=== PATIENT | female | born 1995 | race Caucasian/White ===

== ENCOUNTER 2018-03-31 21:29 | Emergency (ER) | payer BC ==
[~2018-03-31] VITALS: Ht 165.1 cm; Wt 93.9 kg
[2018-03-31 21:31] VITALS: TEMP 37.2; Ht 165.1 cm; Wt 93.9 kg
[2018-03-31] MEDS ORDERED: CEFTRIAXONE SOD 350MG/ML 1 GM VIAL IM ONE (22:15)
[2018-03-31] MEDS ORDERED: CEPH500C2 PO (22:23)
[2018-03-31] MEDS ORDERED: SULF800T23 PO (22:23)
--- NOTE | 2018-03-31 22:24 | EMERGENCY ROOM VISIT NOTE ---
ED Visit Note First contact with patient: 21:42 CHIEF COMPLAINT: Left second finger infection 1 day HISTORY OF PRESENT ILLNESS: Patient is a [id number] 22-year-old female who presents the emergency department accompanied by friends for evaluation of an infection of her left second finger. She states that she cut the area on something while she was moving into her apartment 2 days ago. She notes that she had a small wound on the back of her left second finger over the PIP crease. She essentially did nothing for the wound, and did not think much of it. Yesterday she began to notice some swelling over the PIP joint and some soreness with movement. This afternoon, she noticed that there was redness traveling up her hand and wrist. She notes a mild throbbing discomfort that she rates a 4/10. She has not had any fevers. She denies any prior history of skin infections or abscesses, but does report that her mother has tested positive for MRSA in the past. REVIEW OF SYSTEMS: Review of systems as per HPI. All other systems reviewed were negative. 10 systems reviewed. PMH: Electronic medical records are reviewed and summarized as above/below. See Problem List. Her tetanus vaccination is up-to-date. SOCIAL HISTORY: Patient is a college student from the [employer] who lives locally with roommates. She does not smoke. PHYSICAL EXAM: Vital Signs: Reviewed Nurse's notes. CONSTITUTIONAL: Patient is a pleasant, well-appearing 22-year-old female who is awake and alert and nontoxic in appearance. INTEGUMENTARY: Examination of the left hand note a subcentimeter, well approximated superficial wound on the dorsal DIP joint. No drainage or discharge present. There is erythema on the dorsum of the left second finger, from the DIP joint proximally to the MCP joint, then faint lymphangitic streaking up the dorsum of the hand, just proximal to the extensor crease of the wrist. MUSCULOSKELETAL: The left second DIP joint is mildly tender to palpation. Range of motion is limited only by soft tissue swelling. No tenderness to palpation in the metacarpal or carpal distribution. Wrist range of motion is full. The left upper extremity is neurovascularly intact. EMERGENCY DEPARTMENT COURSE: The patient was seen and assessed as above. She appears to have a localized infection from the wound on the left second finger, with lymphangitic streaking to the wrist. She is otherwise well-appearing and nontoxic. Mechanism of injury is not consistent with fracture. Exam does not appear consistent with infectious tenosynovitis. Patient declined x-rays. The patient was given 1 g of ceftriaxone IM. She will be placed on Keflex and Bactrim. She was given strict return to ED instructions. Medication reconciliation: I attest that I have personally reviewed the patient' s current medication list. Blood pressure screening : Patient was found to have normal blood pressure on screening and does not require follow-up. (Palma Pike PA) First contact with patient: 21:42 (Robles Hermosillo M.D.) Problem List Surgical Problems: (1) Status post wrist surgery Status: Resolved (Robles Hermosillo M.D.) Current/Historical Medications Scheduled Cephalexin Monohydrate (Keflex), 500 MG PO QID Sulfa/Trimethoprim (Bactrim Ds 800MG/160MG), 1 TAB PO BID Allergies Coded Allergies: No Known Allergies (Unverified , 03/31/18) Vital Signs Date Time Temp Pulse Resp B/P (MAP) Pulse Ox O2 Delivery O2 Flow Rate FiO2 03/31/18 22:29 81 20 118/72 97 Room Air 03/31/18 21:31 37.2 114 18 132/70 99 Room Air (Robles Hermosillo M.D.) Medications Administered Medications (Trade) Dose Ordered Sig/Jessica Route Start Time Stop Time Status Last Admin Dose Admin Ceftriaxone Sodium (Rocephin Im) 1,000 mg NOW ONCE IM 03/31/18 22:15 03/31/18 22:16 DC 03/31/18 22:11 1,000 MG (Robles Hermosillo M.D.) Departure Information Impression Primary Impression: Finger infection Prescriptions Sulfa/Trimethoprim (Bactrim Ds 800MG/160MG) Tab 1 TAB PO BID, #20 TAB Prov: Palma Pike PA 03/31/18 Cephalexin Monohydrate (KEFLEX) 500 Mg Cap 500 MG PO QID, #40 CAP Prov: Palma Pike PA 03/31/18 Referrals No Doctor, Assigned (PCP) Patient Instructions My [facility] Additional Instructions Clean wound daily with soap and water. Cover with an antibiotic ointment and a bandage if needed. Cephalexin(Keflex) 500mg: Take one pill four times daily for 10 days for your skin infection. All antibiotics can cause diarrhea. If this occurs and you feel worse or it does not resolve in 1-2 days follow up with your doctor or return to the Emergency Department as this could be signs of serious underlying problems. Any medication can cause an allergic reaction, stop the pills immediately and return to the ER for rash, hives, breathing difficulties, or swelling. Trimethoprim-Sulfamethoxazole(Bactrim DS): Take one pill twice daily for 10 days for your skin infection. All antibiotics can cause diarrhea. If this occurs and you feel worse or it does not resolve in 1-2 days follow up with your doctor or return to the Emergency Department as this could be signs of serious underlying problems. Any medication can cause an allergic reaction, stop the pills immediately and return to the ER for rash, hives, breathing difficulties, or swelling. Finish all antibiotics even if your symptoms begin to improve. Ibuprofen(Motrin, Advil) may be used for fever or pain. Use 600mg every six hours as needed. Take with food. Avoid using more than 2400mg in a 24 hour period. Do not use 2400mg per day for more than three consecutive days without physician direction. Prolonged inappropriate use can lead to stomach upset or ulcers. (AND/OR) Acetaminophen(Tylenol) may be used for fever or pain. Use 1000mg every six hours as needed. Avoid using more than 3000mg in a 24 hour period. Warm compresses to the affected area 4 times daily for 15-20 minutes. Elevate her pain and swelling. Rest and drink plenty of fluids. Continue current medications. Return to the ER for severe pain, persistent fevers, spreading redness, or any worsening of your condition. Follow up with S within 2-3 days for a recheck of the current condition.
[2018-03-31 22:29] VITALS: BP 118/72; PULSE 81; O2SAT 97
== END 2018-03-31 22:36 | disposition home or self-care (01) ==
LOC: C.EDB 21:30 → C.EDD 22:36
DX: L08.9 Local infection of the skin and subcutaneous tissue, unspecified (principal)